=== PATIENT | female | born 1955 | race Caucasian/White ===

== ENCOUNTER → 2019-03-22 | Outpatient (CLI) | payer MEDICARE, MEDICAID, SELFPAY ==
[2016-05-05 03:15] VITALS: BMI 43.8
--- NOTE | 2019-03-22 | FLU_PTH ---
PATIENT: NETTE REYES LOC: [facility] U#:[id number] AGE/SX: 63/F ROOM: RE03/22/[address]: Dr. Lorraine Cooper MD : 1955 BED: DIS: 03/22/2019 SPEC #: [id number] RECD: 03/22/19 15:17 STATUS: [facility] REQ #: [id number] MARLEN: 03/22/19 00:[address]: Lorraine Cooper DEPT: CYTOLOGY RECD BY: Chaz Yancey ENTERED: 03/23/19 08:53 SP TYPE: Fluid OTHR DR: Dr. Blade Apple MD Tissues: A - Thyroid gland, NOS B - Thyroid gland, NOS Procedures: Special Stain Group II Surgery Specimen Level IV Cytospin Fluid HEADER OPERATION: Ultrasound-guided fine needle aspiration left thyroid PRE-OP DIAGNOSIS: Thyroid nodules TISSUE SUBMITTED: A - FNA left thyroid fluid for cytology, B - FNA left thyroid slides x6 DIAGNOSIS CYTOLOGY A. Left thyroid nodule fluid for cytology, ultrasound-guided FNA (cytospin and cell block): Benign follicular cells and numerous macrophages are noted. B. Left thyroid nodule, ultrasound-guided FNA (smears): Consistent with benign colloid nodule with extensive cystic changes. Adequate for evaluation. See comment. BRENDA:kermit 03/24/19 COMMENT Correlation with clinical, radiologic findings and appropriate follow up are necessary. CYTOLOGY STUDY Slides are reviewed. CYTOLOGY GROSS A - Received is 32 ml of cloudy brown fluid labeled with the patient's name and and designated per the requisition as left thyroid. Submitted for cytology preparation including cell block. B - Received are six smears labeled with the patient's name and designated per the requisition as left thyroid. Submitted for staining. / kermit 03/23/19 TC:5 CPT: 62632, 72229, 83266
== END | disposition home or self-care (01) ==
PROVIDERS: PCP Family Medicine; Referring Provider Surgery; Visit Provider Surgery
DX: E04.2 Nontoxic multinodular goiter (principal)
CPT/HCPCS: 88108; 88305; 88313

== ENCOUNTER → 2019-04-05 10:19 | Outpatient (CLI) | payer MEDICARE, MEDICAID, SELFPAY ==
--- NOTE | 2019-03-29 02:26 | HP_ITS ---
Intake Vital Signs 03/29/19 BMI 43.8 03/29/19 Height 5 ft 4 in 03/29/19 Weight: 221 lb 03/29/19 BMI 37.9 03/29/19 BP 161/83 H 03/29/19 Blood Pressure Location Rt brachial 03/29/19 Position Sitting 03/29/19 Respiration 18 03/29/19 Pulse 115 H 03/29/19 Pulse Source Monitor 03/29/19 Temp 98.1 F 03/29/19 Temp Source Oral 03/29/19 Pulse Oximetry (%) 94 03/29/19 Oxygen Delivery Method room air Intake Visit Reasons: Abnormal Mammo Birads 4 waited for DP Chief Complaint: abnormal mammogram left Research Asst Required: No Accompanied by: Is patient in pain?: No Allergies gabapentin Allergy (Verified 03/29/19 14:17) Hives INHALED STEROIDS Adverse Reaction (Uncoded 05/05/16 03:15) Other Medications Albuterol Aerosols [Ventolin Aerosols] 2.5 mg INHALATION Q6H PRN PRN 05/05/16 [History Confirmed 03/29/19] Albuterol IH (ProAir) [Proair Hfa (SP)Vent Pts] 2 puff INHALATION Q4H PRN PRN 05/05/16 [History Confirmed 03/29/19] Aspirin [Aspirin, Baby] 81 mg PO DAILY@0800 05/05/16 [History Confirmed 03/29/19] Calcium Carb/Vitamin D [Caltrate-600 With Vit D Tab] 1 tab PO DAILY@0800 05/05/16 [History Confirmed 03/29/19] Cholecalciferol (Vitamin D3) [Vitamin D3] 5,000 unit PO DAILY 05/05/16 [History Confirmed 03/29/19] Esomeprazole Mag Trihydrate [Nexium] 40 mg PO DAILY 05/05/16 [History Confirmed 03/29/19] Fexofenadine/Pseudoephedrine [Henna-D 12 Hour Tablet] 1 tab PO BID PRN 05/05/16 [History Confirmed 03/29/19] Lisinopril [Zestril] 0.5 tab PO DAILY 05/05/16 [History Confirmed 03/29/19] Magnesium Chloride 64 tab PO BID 05/05/16 [History Confirmed 03/29/19] Metformin HCl [Glucophage] 1,000 mg PO BIDAC 05/05/16 [History Confirmed 03/29/19] Montelukast [Singulair] 10 mg PO QHS 05/05/16 [History Confirmed 03/29/19] Nystatin Powder [Mycostatin Powder] 1 applic TOPICAL TID 05/05/16 [History Confirmed 03/29/19] Rosuvastatin Calcium [Crestor] 5 mg PO QHS 05/05/16 [History Confirmed 03/29/19] cycloBENZAPRine HCl [Flexeril] 10 mg PO TID PRN PRN 05/05/16 [History Confirmed 03/29/19] [facility] Medical History History of hyperlipidemia (Chronic) History of diabetes mellitus (Chronic) History of COPD (Chronic) CKD (chronic kidney disease), stage II (Chronic) History of asthma (Chronic) Abnormal mammogram of left breast (Acute) Arthritis (Acute) GERD (gastroesophageal reflux disease) (Acute) Hemorrhoids (Acute) Surgical History History of bilateral carpal tunnel release (Acute) History of hysterectomy (Acute) History of right nephrectomy (Acute) history bilateral elbow surgery (Acute) history bilaterl cataract surgery (Acute) Family History Sister Asthma Cancer Mother Arthritis Heart disease Hypertension High cholesterol Cancer skin cancer CVA (cerebral vascular accident) Thyroid disorder Brother Arthritis Cancer lung cancer Hypertension Grandfather Diabetes Social History (Updated 03/29/19 @ 14:26 by Edwar Albrecht MD) Smoking Status: Current every day smoker alcohol intake: never substance use type: does not use HPI HPI HPI: NETTE REYES, is a 63 F who presents to the office today for HPI HPI Surgical H&P: Yes HPI: NETTE REYES, is a 63 F who presents to the office today for Evaluation of an abnormal mammogram to her left breast. Patient had a mammogram done At the [facility] on 02/16/2019 that showed a group of pleomorphic calcifications at the 11 o'clock position middle depth and a biopsy was recommended. I have biopsied in the past her right breast which turned out to be benign ROS General General: No weight change, appetite, fatigue, colon cancer, breast cancer or weakness HEENT HEENT: Yes eye surgery; no difficulty swallowing, eye injury, swollen glands or hoarseness Endo Endocrine: Yes diabetes mellitus; no thyroid disease, thyroid cancer, Hair loss, heat intolerance or cold intolerance Skin Skin: No rash or changing moles Breast Breast: Yes abnormal mammogram; no left breast lump, right breast lump, nipple discharge, breast pain, abnormal US or breast enlargement Musc Musculoskeletal: Yes arthritis and rheumatoid arthritis; no back problems, gout or joint pain Cardio Cardiovascular: No murmur, pacemaker, heart disease, atrial fibrillation, high blood pressure, heart attack, heart stent, palpitations, shortness of breat with exertion or chest pain Psych Psychiatric: No depression, anxiety or hearing voices Resp Respiratory: Yes shortness of breath, No sleep apnea, Yes cough, Yes COPD, Yes asthma, No emphysema, No wheezing Gastro Gastrointestinal: No abdominal pain, No nausea or vomiting, No diarrhea, No constipation, No blood in stool, Yes acid reflux, Yes hemorrhoids, No ulcers, Yes gallbladder problem, No black,tarry stools Chandrakant Hematologic: Yes blood thinners, No blood disorders, No bleeding, No anemia, No blood clots Neuro Neurologic: No system reviewed and no additional complaints, except as docu, No as per HPI, No abnormal walking, No abnormal hearing, No abnormal movements, No abnormal speech, No behavioral changes, No burning sensations, No confusion, No seizure-like activity, No unsteadiness, No dizziness, No localized weakness, No frequent falls, No headache(s), No lack of coordination, No loss of vision, No memory loss, No numbness, No other visual disturbances, No radiating pain, No restless legs, No sensory deficit, No fainting, No tingling, No tremor(s), No weakness, No other Exam HENNH Head: normal to inspection, normocephalic, atraumatic Mouth: oropharynx normal, moist mucous membranes Eyes General: appearance normal, both eyes and all related structures Sclera: sclerae normal Neck Neck: trachea midline, no lymphadenopathy noted Neck mass: No Thyroid: thyroid normal Lymphatic: no lymphadenopathy noted Chest Breast inspection: normal inspection of the breasts Breast Palpation: No nipple discharge Resp Other: Respiratory Exam: Deferred Cardio Heart Sounds: no murmurs Other: Cardiac Exam: Deferred GI Other: GI Exam: Deferred Other: Rectal Exam: Deferred Extrem Other: Extremity Exam: Deferred Assessment & Plan Problems 1. Microcalcification of left breast on mammogram R92.0 Plan I have discussed above with the patient. I have recommended Stereo tactic guided needle core breast biopsy with vacuum assistance. I have described the procedure to the patient. I have discussed with the patient that sometimes the Stereotactic lesion may be artifact and is user dependent and therefore prior to undergoing the procedure, the patient will have a definitive US to ensure that the lesion is truly present and is not artifact. A marker clip will be placed to identify the location. Patient has been counseled to the risks/benefits of the procedure. I have explained the risks of the surgery, including but not limited to: infection, bleeding, injury to any blood vessels/nerves, scar tissue, missing the lesion, further surgery, etc. - the patient understands and agrees to proceed. I have answered all of the patient's questions to her satisfaction and she has no further questions. Coding Level of Care Code Off vis,new,level 3 Diagnoses Microcalcification of left breast on mammogram R92.0 03/29/19 1426 <Electronically signed by Edwar mcdonald MD> Date _ Edwar Albrecht MD
[2019-03-29 14:18] VITALS: BMI 43.8
--- NOTE | 2019-04-05 11:20 | BRBX_PTH ---
PATIENT: NETTE REYES LOC: [facility] U#:[id number] AGE/SX: 69/F ROOM: RE04/05/[address]: Dr. Edwar Albrecht MD : 1955 BED: DIS: SPEC #: [id number] RECD: 04/05/19 11:50 STATUS: CAMERON REJoel #: [id number] MARLEN: 04/05/19 11:[address]: Edwar Albrecht DEPT: SURGICAL PATHOLOGY RECD BY: Jorge Castillo ENTERED: 04/05/19 12:58 SP TYPE: BREAST BX OTHR DR: Dr. Blade Apple MD Tissues: Left breast, NOS Procedures: Surgery Specimen Level IV HEADER OPERATION: Left breast stereotactic biopsy PRE-OP DIAGNOSIS: Left breast middle depth calcifications 11 o'clock area TISSUE SUBMITTED: Left breast ISCHEMIC TIME: 2 minutes FIXATION TIME: 8 hours MICROSCOPIC DIAGNOSIS Left breast, stereotactic needle core biopsy: Fibroadenoma with clustered microcalcifications. AM:kermit 04/06/19 MICROSCOPIC DESCRIPTION Slides are reviewed. GROSS DESCRIPTION Received is one container labeled with the patient's name and not further designated. The specimen consists of multiple elongated fragments of marroquin-yellow fibroadipose tissue that in aggregate measure 7.5 x 3 x 0.3 cm. The entire specimen is submitted in three cassettes. / SJ:kermit 04/05/19 TC:5 CPT: 44148
--- NOTE | 2019-10-19 14:22 | OP.PCM_ITS ---
Problem List (1) Microcalcification of left breast on mammogram Status: Acute Report of Operation Date of Procedure: 04/05/19 Pre-Operative Diagnosis: Microcalcifications left breast Post-Operative Diagnosis: Same Surgery/Procedure Performed:: Left stereotactic breast biopsy Description of Procedure: Patient was brought into the mammography unit. Placed in the supine position on the fissure table. The left breast came down through the opening. Cc view was obtained of the lesion. ?15 degrees views were obtained. I targeted on the microcalcifications. I prepped the breast with Betadine. I injected 1% lidocaine plain. A skin marcos was made. Needle was placed in the prefire position a 2 more stereotactic views were obtained showing the area to be adequately targeted. I fired the needle took 360 degree circumferential biopsies. X-rayed my specimen. Microcalcifications were present. Back the needle off 7 mm. A small titanium clip was placed. Needle was removed. X-ray images showed the clip to be in good placement. Steri-Strips were applied sterile dressings were applied standard mammograms were obtained the patient tolerated the procedure well. - Admit VTE Documentation VTE Present on Admission: No VTE Mechan Device Prophylaxis: None VTE Pharm Prophylaxis ordered?: No Reason prophylaxis not ordered:: Treatment Not Indicated [id number]: [id number] Bx breast 1st lesion [facility]
== END ==
PROVIDERS: PCP Family Medicine; Referring Provider Surgery; Visit Provider Surgery
DX: D24.2 Benign neoplasm of left breast (principal); E78.5 Hyperlipidemia, unspecified; E11.9 Type 2 diabetes mellitus without complications; J44.9 Chronic obstructive pulmonary disease, unspecified; M19.90 Unspecified osteoarthritis, unspecified site; K21.9 Gastro-esophageal reflux disease without esophagitis; F17.200 Nicotine dependence, unspecified, uncomplicated; Z79.82 Long term (current) use of aspirin; Z79.51 Long term (current) use of inhaled steroids; Z79.84 Long term (current) use of oral hypoglycemic drugs; Z79.899 Other long term (current) drug therapy
CPT/HCPCS: 19081; 88305; J7050; A4648

== ENCOUNTER 2019-06-14 03:30 | Emergency (ER) | payer MEDICARE, MEDICAID, SELFPAY ==
[2019-03-29 14:18] VITALS: BMI 43.8
[2019-06-14 03:32] VITALS: BP 172/72; PULSE 107; RESP 19; TEMP 36.4; O2SAT 97; BMI 42.6
--- NOTE | 2019-06-14 03:50 | ED.VIS.GEN ---
History of Present Illness Chief Complaint: Vag Bleeding Informant: Patient Onset: Today Narrative: Patient presents the emergency department with vaginal bleeding. Patient called the ambulance after she noticed an increased amount of bleeding she was having. Patient has had a hysterectomy. She states she is supposed to have a Pap smear but due to the SARS COVID-19 pandemic it was put on hold. Patient states for years she is intermittently had bleeding. She describes blood blisters that come up and rupture. She thought that was what was happening this afternoon when she had some bleeding. However tonight she went to the bathroom and had a large clot. She states that the amount of bleeding concerned her so she called the ambulance. She sees Dr. Esquivel for gynecology. Past Medical History - Allergies and Home Meds Allergies/Adverse Reactions: Allergies gabapentin Allergy (Verified 06/14/19 03:32) Hives INHALED STEROIDS Adverse Reaction (Uncoded 06/14/19 03:32) Other Primary Care Physician: Blade Apple MD [Primary Care Provider] - Surgical History: hysterectomy, R. KIDNEY REMOVAL Smoking Status: Current every day smoker Review of Systems General: Denies: Chills, Fever, Sweats Eyes: Denies: Visual changes - bilaterally, Diplopia ENT: Denies: Rhinorrhea, Sore throat Cardiovascular: Denies: Chest pain, Palpitations Respiratory: Denies: Dyspnea, Cough, Dyspnea on exertion Gastrointestinal: Denies: Abdominal pain, Nausea, Vomiting, Diarrhea, Melena, Hematochezia Genitourinary: Reports: - - vaginal bleeding. Denies: Dysuria, Hematuria, Frequency Musculoskeletal: Denies: Back pain, Extremity Pain Skin: Denies: Rash, Wounds Neurological: Denies: Headache, Weakness, Numbness Physical Exam Vital Signs/Narrative: Vital Signs Temp Pulse Resp BP Pulse Ox 06/14/19 03:32 87.5 F L 107 H 19 H 172/72 H 97 Inital Vital Signs reviewed: Yes General: Obese : - - On speculum examination I see what appears to be several small tears in the vaginal mucosa. However there is no bleeding from them. There is some dark red blood that seems to come from the posterior aspect. I do not see really any blood on the anterior or lateral kidd of the vagina. I do not see any blood blisters or lesions. Diagnostic/Tx/Re-eval - Medical Decision Making Hemoglobin and hematocrit were checked and stable. While I do not see an obvious source of bleeding there is obvious venous blood in the vagina of a mild amount. I did speak with Dr. Esquivel to help facilitate follow-up and she is more than willing to see the patient in follow-up. ED Disposition - Plan for ED Patient: Disposition: Home or Assisted Living Diagnosis: Vaginal bleeding, Post-menopausal Referrals: Jessica Esquivel MD [STAFF PHYSICIAN] - As soon as possible Additional Instructions: While the source of bleeding was not identified today you need a appropriate gynecologic examination by a electrophysiology technologist. Should your bleeding worsen or you start to feel lightheaded/passing out/pale you should have your hemoglobin rechecked.
[2019-06-14 04:13] VITALS: BP 143/67; PULSE 111; RESP 22; O2SAT 97
[2019-06-14 04:13] LABS: Hematocrit 43.1 % (37-47); Hemoglobin 13.6 g/dL (12.0-15.0)
[2019-06-14 04:25] VITALS: PULSE 105
[2019-06-14 05:05] VITALS: BP 138/78; PULSE 104; RESP 21; O2SAT 98
== END 2019-06-14 05:06 | disposition home or self-care (01) ==
PROVIDERS: Emergency Provider Emergency Medicine; PCP Family Medicine
DX: N95.0 Postmenopausal bleeding (principal); F17.200 Nicotine dependence, unspecified, uncomplicated; E66.9 Obesity, unspecified
CPT/HCPCS: 36415; 85014; 85018; 99284

== ENCOUNTER 2024-05-27 14:40 | Inpatient (IN) | payer MEDICARE, MEDICAID, SELFPAY ==
[2024-05-27] VITALS (13 sets, daily range): BP systolic 97–137; BP diastolic 55–97; PULSE 112–140; RESP 15–32; TEMP 36.5–36.6; O2SAT 92–97; BMI 44.1; BMI 36.8
--- NOTE | 2024-05-27 15:04 | EKG12_ITS ---
Test Reason : DIZZY Blood Pressure : */* mmHG Vent. Rate : 130 BPM Atrial Rate : 130 BPM P-R Int : 148 ms QRS Dur : 82 ms QT Int : 288 ms P-R-T Axes : 40 -1 32 degrees QTcB Int : 423 ms Sinus tachycardia with PAC's Otherwise normal ECG Confirmed by Dustin Knight ([id number]), map editor JO LAWSON ([id number]) on 05/31/2024 6:47:40 AM Referred By: Raciel Ashby Confirmed By: Dustin Knight
[2024-05-27] MEDS: 0.9% Normal Saline (1000mL) 1,000 ML 1000 ML IV (15:11)
--- NOTE | 2024-05-27 15:15 | RAD_ITS ---
EXAM: XR Chest, 2 Views CLINICAL INDICATION: COUGH TECHNIQUE: Frontal and lateral views of the chest. COMPARISON: No relevant prior studies available. FINDINGS: LUNGS AND PLEURAL SPACES: Right middle lobe pneumonia. No pneumothorax. HEART: Unremarkable. No cardiomegaly. MEDIASTINUM: Unremarkable. Normal mediastinal contour. BONES/JOINTS: Unremarkable. No acute fracture. RAD/Chest PA and Lateral IMPRESSION: Right middle lobe pneumonia. Reading Location: [facility]
[2024-05-27 15:19] LABS: Absolute Lymphocyte Count 0.78 X10^3/uL (0.83-4.51); Absolute Neutrophil Count 16.2 X10^3/uL (2.0-7.7); Basophil# 0.06 X10^3/uL; Basophil% 0.3 % (0-1); Eosinophil# 0.09 X10^3/uL; Eosinophils% 0.5 % (0-5); Hemoglobin 10.2 g/dL (12.0-15.0); Lymphocyte # 0.78 X10^3/ul (0.83-4.51); Lymphocyte % 4.3 % (19-41); Mean Corp Hgb Conc 31.9 g/dL (32-36); Mean Corpuscular Hgb 24.6 pg (27.0-32.0); Mean Corpuscular Volume 77.3 fL (81-99); Monocyte# 0.71 X10^3/uL; Monocyte% 3.9 % (0-10); NRBC Flagged by Analyzer 0 % (0-5); Neutrophil # 16.19 X10^3/uL (2.7-7.7); Neutrophil % 89.7 % (47-70); Platelet Count 566 K/mm3 (150-450); RBC Distribution Width CV 15.6 % (11.6-14.6); RBC Distribution Width SD 43.8 fl (35.1-43.9); Red Blood Count 4.14 M/mm3 (4.2-5.4); White Blood Count 18.1 K/mm3 (4.4-11.0)
[2024-05-27] MEDS: Ipratropium/Albuterol Sulfate 3 ML AMPUL.NEB INHALATION (15:25)
--- NOTE | 2024-05-27 15:25 | EX.ED.DYSGE1 ---
HPI History of Present Illness Chief Complaint: Syncope Informant: patient and family Narrative Narrative: Patient is a 68-year-old female with history of COPD, CKD, asthma, diabetes, hyperlipidemia, vulvar cancer status post radiation and recent diagnosis of lung cancer (has not started treatment yet but follows with [facility]?Dr. Obando and Dr. Sánchez) presenting for near syncopal episode at her oncology office today. He states for the past week she has had what feels like a cold. States has been feeling tired and feeling bad for 5 to 6 days. She said decreased oral intake and decreased fluids. She has had a cough is been nonproductive. She did throw up the first day this started and is also had intermittent diarrhea (took Imodium this morning). States that her chest feels sore from vomiting. She does have some intermittent palpitations. She denies confusion but her daughter states she seems foggy. She denies fever but has been having cold chills. Does have a history of UTIs but denies any urine symptoms. Does note her urine seemed orange this morning however. When she was at her oncology office today she felt lightheaded and fell like she was going to pass out. She did get weak but did not fall or injure herself. She denies any swelling of her legs. Denies any sick contacts. Is not on any blood thinners. Notes that she did not take her morning medications. Is normally on metoprolol for fast heart rates. Did not take her meds today because she is not feeling good. Oncology note from earlier today reviewed on [facility]. Recently diagnosed with stage Ia non-small cell lung cancer. I did thank you had near syncope in the office was sent to the ER for further evaluation. Currently on Lopressor 25 mg twice daily however her medical history does not show an indication for this. Patient states it is for her fast heart rate. [facility] Medical History Hemorrhoids GERD (gastroesophageal reflux disease) Arthritis Abnormal mammogram of left breast History of hyperlipidemia History of diabetes mellitus History of COPD CKD (chronic kidney disease), stage II History of asthma Home Medications ?Medication ?Instructions ?Recorded ?Last Taken ?Type albuterol sulfate 2.5 mg/3 mL 2.5 mg inhalation Q6H PRN PRN Sob 05/05/16 Unknown History (0.083 %) solution for nebulization &/Or Wheezing albuterol sulfate 90 mcg/actuation 2 puff inhalation Q4H PRN PRN Sob 05/05/16 Unknown History aerosol inhaler &/Or Wheezing aspirin 81 mg chewable tablet 81 mg PO DAILY@0800 05/05/16 Unknown History cholecalciferol (vitamin D3) 125 5,000 unit PO DAILY 05/05/16 Unknown History mcg (5,000 unit) capsule esomeprazole magnesium 40 mg 40 mg PO DAILY 05/05/16 Unknown History capsule,delayed release fexofenadine 60 mg-pseudoephedrine 1 tab PO BID PRN ALLERGY SYMPTOMS 05/05/16 Unknown History ER 120 mg tablet,ext.release,12 hr lisinopril 5 mg tablet 0.5 tab PO DAILY 05/05/16 Unknown History metformin 500 mg tablet 1,000 mg PO BIDAC 05/05/16 Unknown History nystatin 100,000 unit/gram topical 1 applic topical TID 05/05/16 Unknown History powder baclofen 10 mg tablet 10 mg PO TID PRN PRN muscle spasm 05/27/24 Unknown History dulaglutide 3 mg/0.5 mL 3 mg subcut QWEEK 05/27/24 Unknown History subcutaneous pen injector (Trulicity) evolocumab 140 mg/mL subcutaneous 140 mg subcut QMONTH 05/27/24 Unknown History pen injector (Elyse Mai) fenofibrate nanocrystallized 145 145 mg PO DAILY 05/27/24 Unknown History mg tablet glimepiride 1 mg tablet 1 mg PO DAILY 05/27/24 Unknown History levothyroxine 125 mcg tablet 125 mcg PO DAILY 05/27/24 Unknown History magnesium oxide 400 mg PO DAILY 05/27/24 Unknown History metoprolol tartrate 25 mg tablet 25 mg PO BID 05/27/24 Unknown History Allergy/AdvReac Type Severity Reaction Status Date / Time gabapentin Allergy Hives Verified 05/27/24 14:42 Corticosteroids AdvReac NEEDS Verified 05/27/24 14:42 (Glucocorticoids) FOLLOW-UP Family History Sister Asthma Cancer Mother Arthritis Heart disease Hypertension High cholesterol Cancer skin cancer CVA (cerebral vascular accident) Thyroid disorder Brother Arthritis Cancer lung cancer Hypertension Grandfather Diabetes Surgical History History of breast biopsy (~03/2019) history bilaterl cataract surgery History of bilateral carpal tunnel release history bilateral elbow surgery History of right nephrectomy History of hysterectomy Social History Smoking Status: Current every day smoker tobacco type: cigarettes alcohol intake: never substance use type: does not use ROS ROS ED Constitutional Constitutional ED: Reports chills and sweats; Denies fever(s) Eyes Eyes: Denies change in vision ENT ENT ED: Denies sore throat Cardiovascular Cardiovascular: Reports palpitations; Denies chest pain Respiratory/Chest Respiratory/Chest: Reports cough and dyspnea on exertion Gastrointestinal Gastrointestinal: Reports diarrhea and vomiting; Denies abdominal pain, constipation or melena Genitourinary Genitourinary ED: Reports other Details: decreased urination ; Denies dysuria Musculoskeletal Musculoskeletal: Reports myalgias Integumentary Denies rash Neurologic Neurologic: Reports weakness Hematologic/Lymphatic Hematologic/Lymphatic: Denies easy bleeding or easy bruising EXAM Physical Exam Const Vital Signs: 05/27/24 14:42 05/27/24 14:45 05/27/24 14:54 Temperature 97.8 F 97.8 F Temperature Source Oral Oral Pulse Rate 140 H 131 H Respiratory Rate 32 H 19 H Respiratory Effort Normal Respiratory Pattern Blood Pressure 137/97 H 137/97 H Blood Pressure Mean 110 110 Pulse Ox 97 96 Oxygen Delivery Method Room Air Room Air 05/27/24 15:00 05/27/24 15:21 05/27/24 15:25 Temperature Temperature Source Pulse Rate 130 H 131 H 124 H Respiratory Rate 17 29 H 18 Respiratory Effort Respiratory Pattern Normal Blood Pressure 116/76 Blood Pressure Mean 88 Pulse Ox 97 97 Oxygen Delivery Method 05/27/24 15:45 05/27/24 16:00 05/27/24 16:00 Temperature 97.7 F L 97.7 F L Temperature Source Oral Oral Pulse Rate 123 H 122 H 122 H Respiratory Rate 20 H 27 H 27 H Respiratory Effort Respiratory Pattern Blood Pressure 117/77 113/58 L 113/58 L Blood Pressure Mean 90 76 76 Pulse Ox 96 92 92 Oxygen Delivery Method Room Air Room Air Nasal Cannula 05/27/24 16:00 05/27/24 17:00 05/27/24 17:30 Temperature 98 F Temperature Source Oral Pulse Rate 123 H 122 H 118 H Respiratory Rate 18 15 18 Respiratory Effort Respiratory Pattern Blood Pressure 113/58 L 126/55 H 97/56 L Blood Pressure Mean 75 78 69 Pulse Ox 95 94 96 Oxygen Delivery Method Room Air 05/27/24 18:00 Temperature Temperature Source Pulse Rate 120 H Respiratory Rate 19 H Respiratory Effort Respiratory Pattern Blood Pressure 117/63 Blood Pressure Mean 81 Pulse Ox 95 Oxygen Delivery Method Positive well nourished and well developed General Appearance ED: well developed and NAD HEENT Reports moist mucous membranes Eyes EOMs intact bilaterally Neck supple and no JVD Chest Wall inspection of chest normal and palpation of chest normal Resp normal respiratory effort Auscultation: diminished lung sounds Cardio regular rhythm and no murmurs Rate: tachycardic GI normal to inspection, nondistended, normoactive bowel sounds and non-tender Auscultation: hyperactive bowel sounds Extremity normal to inspection General Extremety ED: Negative for edema General Extremity: Negative for edema Neuro oriented x3 Sensorium / Orientation: alert Motor Exam: general weakness Psych mental status grossly normal Skin no rashes or lesions noted and no wounds MDM MDM MDM Narrative Medical decision making narrative: Patient evaluated for near syncopal episode. She has been ill for the past few days with poor p.o. intake, generalized malaise and some nausea and vomiting. Patient not take her morning medications. Upon arrival patient is tachycardic and tachypneic. She is not hypoxic. Suspect she is volume depleted given her HPI. Patient is given IV fluids with improvement of her heart rate (instead of jumping around it is now in the 120s more consistently). Is then given IV metoprolol with further heart rate improvement as she did not take it today. She is not hypotensive in the emergency room. She does have a leukocytosis white count of 18.1. She is anemic with a hemoglobin of 10.2 that appears to be microcytic. Hemoglobin on 05/11 was 11.8 and white blood cell count that time was 13.9. Prior records reviewed through [facility]. Patient does appear to have an PETRA with creatinine of 2.25 (baseline 1.37) and is acutely hyponatremic with sodium of 123. This is consistent with her report of weakness and decreased oral intake. Her bicarb is also low at 17.6 consistent with dehydration. Her lactate is normal which was added on because she has a leukocytosis and urinalysis concerning with infection with a white blood cell count of 25-50 and 1+ bacteria. Her chest x-ray is concerning for a right middle lobe pneumonia. This is reviewed by myself as well as radiology. I do question if this could be related to her recent bronchoscopy or mass that was seen in the right lower lobe. Out of abundance of caution will add on azithromycin in addition to the Rocephin for coverage of community-acquired pneumonia however. Given patient's multiple electrolyte abnormalities and she needs right ear for sepsis with leukocytosis, tachycardia and source of infection as well as PETRA will be admitted to hospitalist service. Is given additional IV fluids. Patient is agreeable with this plan of care. Lab Data Attestation: I reviewed the patient's lab results. Labs: Laboratory Results - last 24 hr 05/27/24 05/27/24 05/27/24 14:50 16:05 16:20 WBC 18.1 H RBC 4.14 L Hgb 10.2 L Hct 32.0 L MCV 77.3 L MCH 24.6 L MCHC 31.9 L RDW Std Deviation 43.8 RDW Coeff of Yoli 15.6 H Plt Count 566 H MPV 10.0 Immature Gran % (Auto) 1.300 H Neut % (Auto) 89.7 H Lymph % (Auto) 4.3 L [place] % (Auto) 3.9 Eos % (Auto) 0.5 Baso % (Auto) 0.3 Absolute Neuts (auto) 16.2 H Absolute Lymphs (auto) 0.78 L Nucleated RBC % 0 Sodium 123 L Potassium 4.7 Chloride 88 L Carbon Dioxide 17.6 L Anion Gap 17 H BUN 29 H Creatinine 2.25 H Estim Creat Clear Calc 26.50 L Est GFR (MDRD) Non-Af 23 L BUN/Creatinine Ratio 12.8 Glucose 236 H Lactic Acid 1.2 Calcium 9.8 Ferritin 313 Total Bilirubin 0.93 AST 14 ALT 6 Alkaline Phosphatase 69 Troponin T High Sens 32 H Troponin T Hi Sens 2 Hr NT pro BNP II 1080 H Total Protein 8.1 Albumin 3.4 Globulin 4.7 H Albumin/Globulin Ratio 0.7 L Lipase 15 Urine Color Melissa Urine Clarity Cloudy Urine pH 5.0 Ur Specific [place] 1.030 Urine Protein 100 H Urine Glucose (UA) Normal Urine Ketones 5 H Urine Occult Blood 10 H Urine Nitrite Negative Urine Bilirubin 3 H Urine Urobilinogen 8 H Ur Leukocyte Esterase 500 H Urine RBC 0-5 SEEN Urine WBC 25-50 SEEN Ur Squamous Epith Cells 0-5 SEEN Amorphous Sediment 1+ PHOS Urine Bacteria 1+ Hyaline Casts 0-5 SEEN Fine Granular Casts 0-5 SEEN Coarse Granular Casts 0-5 SEEN Urine Mucus 0 SEEN 05/27/24 17:20 WBC RBC Hgb Hct MCV MCH MCHC RDW Std Deviation RDW Coeff of Yoli Plt Count MPV Immature Gran % (Auto) Neut % (Auto) Lymph % (Auto) [place] % (Auto) Eos % (Auto) Baso % (Auto) Absolute Neuts (auto) Absolute Lymphs (auto) Nucleated RBC % Sodium Potassium Chloride Carbon Dioxide Anion Gap BUN Creatinine Estim Creat Clear Calc Est GFR (MDRD) Non-Af BUN/Creatinine Ratio Glucose Lactic Acid Calcium Ferritin Total Bilirubin AST ALT Alkaline Phosphatase Troponin T High Sens Troponin T Hi Sens 2 Hr 32 H NT pro BNP II Total Protein Albumin Globulin Albumin/Globulin Ratio Lipase Urine Color Urine Clarity Urine pH Ur Specific [place] Urine Protein Urine Glucose (UA) Urine Ketones Urine Occult Blood Urine Nitrite Urine Bilirubin Urine Urobilinogen Ur Leukocyte Esterase Urine RBC Urine WBC Ur Squamous Epith Cells Amorphous Sediment Urine Bacteria Hyaline Casts Fine Granular Casts Coarse Granular Casts Urine Mucus Radiography Diagnostic Testing: Clinical Impression(s) from Imaging Studies Chest X-Ray 05/27/24 15:15 IMPRESSION: Right middle lobe pneumonia. Reading Location: [facility] Rhythm Strip Rhythm Strip: Sinus Tach Rate: 130 Ectopy: None EKG Initial EKG: Attestation: I personally reviewed and interpreted this EKG as follows: Interpretation: Sinus Tachycardia Comments: Sinus tachycardia rate 130 bpm Normal axis Normal intervals Normal ST segments Management Discussion w/another healthcare provider: Hospitalist Discharge Plan Dx/Rx/DC Orders Clinical Impression: UTI (urinary tract infection), PETRA (acute kidney injury), Acute hyponatremia, Near syncope, Sepsis Disposition Disposition: [facility] Discharge Date/Time: 05/27/24 19:57
[2024-05-27 15:52] LABS: ALB/GLOB Ratio 0.7 RATIO (0.9-2.4); AST(SGOT) 14 U/L (<=31); Alanine Aminotransfer ALT/SGPT 6 U/L (<=34); Albumin, Serum 3.4 g/dL (3.4-4.8); Alkaline Phosphatase 69 U/L (35-104); Anion Gap 17 (5-15); BUN 29 mg/dL (4-19); BUN/Creat Ratio 12.8 RATIO (10-20); Calcium,Total 9.8 mg/dL (7.6-11.0); Carbon Dioxide 17.6 mmol/L (21.0-32.0); Chloride 88 mmol/L (98-108); Creatinine, Serum 2.25 mg/dL (0.70-1.20); EST Glomerular Filtration Rate 23 (>60); Globulin 4.7 g/dL (2.2-4.2); Glucose 236 mg/dL (70-99); Lipase 15 U/L (13-75); Potassium 4.7 mmol/L (3.3-5.1); Pro- Brain NATRIURETIC PEPTIDE 1080 pg/mL (<=900); Protein, Total 8.1 g/dL (5.9-8.4); Sodium Level 123 mmol/L (133-145); Total Bilirubin 0.93 mg/dL (0.00-1.30)
[2024-05-27 16:17] LABS: Troponin T High Sensitivity 32 ng/L (<=14)
[2024-05-27 16:35] LABS: Mucous, Urine 0 SEEN /hpf (<or=2+)
[2024-05-27 16:51] LABS: Color, Urine Amber (Yellow); Glucose, Dipstick Normal (Normal); Ketone-Dipstick 5 mg/dl (Negative); Leukocyte Esterase-Dipstick 500 /ul (Negative); Nitrite-Dipstick Negative (Negative); Occult Blood-Urine 10 /ul (Negative); Protein-Dipstick 100 mg/dl (Negative); Urine Clarity Cloudy (Clear); Urine Urobilinogen 8 mg/dl (Normal)
[2024-05-27 16:58] LABS: Urine Bilirubin Dipstick 3 mg/dL (Negative)
[2024-05-27 17:34] LABS: Red Blood Cells-Urine 0-5 SEEN /hpf (0-5); White Blood Cells 25-50 SEEN /hpf (0-5)
[2024-05-27 17:35] LABS: Bacteria 1+ /hpf (None Seen); Hyaline Cast 0-5 SEEN /lpf (0-5); Squamous Epithelial Cells - UA 0-5 SEEN /hpf (5-10)
[2024-05-27 17:36] LABS: Lactic Acid 1.2 mmol/L (0.0-2.0)
[2024-05-27 17:36] LABS: Coarse Granular Cast 0-5 SEEN /lpf (0-5 /lpf); Fine Granular Cast- Urine 0-5 SEEN /lpf (0-5)
[2024-05-27 17:37] LABS: Amorphous Sediment 1+ PHOS
[2024-05-27 17:57] LABS: Troponin T High Sens 2 HR 32 ng/L (<=14)
[2024-05-27] MEDS: Metoprolol Tartrate 5 MG/5 ML Vial IV (18:31)
[2024-05-27] MEDS: 0.9% Normal Saline (1000mL) 1,000 ML 150 ML IV (18:38)
[2024-05-27] MEDS: Ceftriaxone 1 GM/50 ML BAG IV (18:38)
--- NOTE | 2024-05-27 19:02 | PCM.HP.STD ---
HPI - General General Date of Admission: 05/27/24 HPI Narrative NETTE REYES, is a 68 F who presents to the hospital feeling unwell since Friday. She initially started feeling chills, no fevers and had an episode of nausea and vomiting on Friday and then again on Friday. She has had a decrease in appetite and p.o. intake and presented to her oncologist office today to discuss treatment for her non-small cell lung cancer on the right. Unfortunately while in the office she had a near syncopal episode and they referred her to the emergency room where she was found to have a leukocytosis to 18 as well as an PETRA and hyponatremia. She does have a history of multiple cancers including a vulvar cancer, a right renal cancer status post resection and this is her second lung cancer, it is unclear whether or not this is a recurrence of her previous or a new cancer. She was given Rocephin and azithromycin in the ER and urine cultures and blood cultures are pending, also obtain a sputum culture. Baseline renal function does appear to be around 1.3 and her creatinine today is 2.25, she does have an elevated BNP but this is likely in response to her PETRA. [facility] Medical History (Updated 05/27/24 @ 19:[address] Raciel Ashby MD) Hemorrhoids GERD (gastroesophageal reflux disease) Arthritis Abnormal mammogram of left breast History of hyperlipidemia History of diabetes mellitus History of COPD CKD (chronic kidney disease), stage II History of asthma Home Medications ?Medication ?Instructions ?Recorded ?Last Taken ?Type albuterol sulfate 2.5 mg/3 mL 2.5 mg inhalation Q6H PRN PRN Sob 05/05/16 Unknown History (0.083 %) solution for nebulization &/Or Wheezing albuterol sulfate 90 mcg/actuation 2 puff inhalation Q4H PRN PRN Sob 05/05/16 Unknown History aerosol inhaler &/Or Wheezing aspirin 81 mg chewable tablet 81 mg PO DAILY@0800 05/05/16 Unknown History cholecalciferol (vitamin D3) 125 5,000 unit PO DAILY 05/05/16 Unknown History mcg (5,000 unit) capsule esomeprazole magnesium 40 mg 40 mg PO DAILY 05/05/16 Unknown History capsule,delayed release fexofenadine 60 mg-pseudoephedrine 1 tab PO BID PRN ALLERGY SYMPTOMS 05/05/16 Unknown History ER 120 mg tablet,ext.release,12 hr lisinopril 5 mg tablet 0.5 tab PO DAILY 05/05/16 Unknown History metformin 500 mg tablet 1,000 mg PO BIDAC 05/05/16 Unknown History nystatin 100,000 unit/gram topical 1 applic topical TID 05/05/16 Unknown History powder baclofen 10 mg tablet 10 mg PO TID PRN PRN muscle spasm 05/27/24 Unknown History dulaglutide 3 mg/0.5 mL 3 mg subcut QWEEK 05/27/24 Unknown History subcutaneous pen injector (Trulicity) evolocumab 140 mg/mL subcutaneous 140 mg subcut QMONTH 05/27/24 Unknown History pen injector (Repatha Intent HQGregoryick) fenofibrate nanocrystallized 145 145 mg PO DAILY 05/27/24 Unknown History mg tablet glimepiride 1 mg tablet 1 mg PO DAILY 05/27/24 Unknown History levothyroxine 125 mcg tablet 125 mcg PO DAILY 05/27/24 Unknown History magnesium oxide 400 mg PO DAILY 05/27/24 Unknown History metoprolol tartrate 25 mg tablet 25 mg PO BID 05/27/24 Unknown History Allergy/AdvReac Type Severity Reaction Status Date / Time gabapentin Allergy Hives Verified 05/27/24 14:42 Corticosteroids AdvReac NEEDS Verified 05/27/24 14:42 (Glucocorticoids) FOLLOW-UP Family History Sister Asthma Cancer Mother Arthritis Heart disease Hypertension High cholesterol Cancer skin cancer CVA (cerebral vascular accident) Thyroid disorder Brother Arthritis Cancer lung cancer Hypertension Grandfather Diabetes Surgical History (Updated 09/06/21 @ 11:29 by Lisa Hernandez) History of breast biopsy (~03/2019) history bilaterl cataract surgery History of bilateral carpal tunnel release history bilateral elbow surgery History of right nephrectomy History of hysterectomy Social History (Updated 04/19/19 @ 10:[address] Edwar Albrecht MD) Smoking Status: Current every day smoker tobacco type: cigarettes alcohol intake: never substance use type: does not use ROS Constitutional Constitutional: Reports chills, fatigue and weakness; Denies fever(s) or malaise Eyes Eyes: Denies blurry vision ENT HEENT: Denies headache(s) or nasal discharge Cardiovascular Cardiovascular: Denies chest pain, dyspnea on exertion or syncope Respiratory/Chest Respiratory/Chest: Denies cough, shortness of breath at rest or shortness of breath with exertion Gastrointestinal Gastrointestinal: Reports nausea and vomiting; Denies constipation or diarrhea Genitourinary Genitourinary: Denies dysuria Neurologic Neurologic: Denies focal weakness, numbness or tremor(s) Psychiatric Psychiatric: Denies anxiety or depression Vital Signs Vital Signs Vital Signs: 05/27/24 14:42 05/27/24 14:45 05/27/24 14:54 Temperature 97.8 F 97.8 F Temperature Source Oral Oral Pulse Rate 140 H 131 H Respiratory Rate 32 H 19 H Respiratory Effort Normal Respiratory Pattern Blood Pressure 137/97 H 137/97 H Blood Pressure Mean 110 110 Pulse Ox 97 96 Oxygen Delivery Method Room Air Room Air 05/27/24 15:00 05/27/24 15:21 05/27/24 15:25 Temperature Temperature Source Pulse Rate 130 H 131 H 124 H Respiratory Rate 17 29 H 18 Respiratory Effort Respiratory Pattern Normal Blood Pressure 116/76 Blood Pressure Mean 88 Pulse Ox 97 97 Oxygen Delivery Method 05/27/24 15:45 05/27/24 16:00 05/27/24 16:00 Temperature 97.7 F L 97.7 F L Temperature Source Oral Oral Pulse Rate 123 H 122 H 122 H Respiratory Rate 20 H 27 H 27 H Respiratory Effort Respiratory Pattern Blood Pressure 117/77 113/58 L 113/58 L Blood Pressure Mean 90 76 76 Pulse Ox 96 92 92 Oxygen Delivery Method Room Air Room Air Nasal Cannula 05/27/24 16:00 05/27/24 17:00 05/27/24 17:30 Temperature 98 F Temperature Source Oral Pulse Rate 123 H 122 H 118 H Respiratory Rate 18 15 18 Respiratory Effort Respiratory Pattern Blood Pressure 113/58 L 126/55 H 97/56 L Blood Pressure Mean 75 78 69 Pulse Ox 95 94 96 Oxygen Delivery Method Room Air 05/27/24 18:00 Temperature Temperature Source Pulse Rate 120 H Respiratory Rate 19 H Respiratory Effort Respiratory Pattern Blood Pressure 117/63 Blood Pressure Mean 81 Pulse Ox 95 Oxygen Delivery Method Weight Weight: 225 lb 12.054 oz Body Mass Index (BMI) 44.1 Physical Exam Narrative General: Alert, Oriented x3, Cooperative, No apparent distress HEENT: Atraumatic, PERRLA, EOMI, Normocephalic Oral: Dry mucosa Neck: Supple, No JVD Lungs: Diminished, Normal air movement, No rhonchi, No wheeze, No rales Cardiovascular: Tachycardic, Regular Rhythm, Normal S1, Normal S2, No murmurs Abdomen: Soft, Non Tender, Non-Distended, No Hepato-splenomegaly Extremities: No edema, Capillary Refill Less than 3 Seconds Skin: No rashes, No breakdown Musculoskeletal: No Tenderness to Palpation of Joints or Extremities Neurological: No focal neurological deficits, Motor Exam 5/5 strength throughout, Sensory exam intact to light touch and pain Psych/Mental Status: Normal Affect, Appropriate Results Lab / Micro Data 05/27/24 14:50 05/27/24 14:50 Labs: Laboratory Results - last 24 hr 05/27/24 14:50: WBC 18.1 H, RBC 4.14 L, Hgb 10.2 L, Hct 32.0 L, MCV 77.3 L, MCH 24.6 L, MCHC 31.9 L, RDW Std Deviation 43.8, RDW Coeff of Yoli 15.6 H, Plt Count 566 H, MPV 10.0, Immature Gran % (Auto) 1.300 H, Neut % (Auto) 89.7 H, Lymph % (Auto) 4.3 L, [place] % (Auto) 3.9, Eos % (Auto) 0.5, Baso % (Auto) 0.3, Absolute Neuts (auto) 16.2 H, Absolute Lymphs (auto) 0.78 L, Nucleated RBC % 0, Sodium 123 L, Potassium 4.7, Chloride 88 L, Carbon Dioxide 17.6 L, Anion Gap 17 H, BUN 29 H, Creatinine 2.25 H, Estim Creat Clear Calc 26.50 L, Est GFR (MDRD) Non-Af 23 L, BUN/Creatinine Ratio 12.8, Glucose 236 H, Calcium 9.8, Total Bilirubin 0.93, AST 14, ALT 6, Alkaline Phosphatase 69, Troponin T High Sens 32 H, NT pro BNP II 1080 H, Total Protein 8.1, Albumin 3.4, Globulin 4.7 H, Albumin/Globulin Ratio 0.7 L, Lipase 15 05/27/24 16:05: Urine Color Melissa, Urine Clarity Cloudy, Urine pH 5.0, Ur Specific [place] 1.030, Urine Protein 100 H, Urine Glucose (UA) Normal, Urine Ketones 5 H, Urine Occult Blood 10 H, Urine Nitrite Negative, Urine Bilirubin 3 H, Urine Urobilinogen 8 H, Ur Leukocyte Esterase 500 H, Urine RBC 0-5 SEEN, Urine WBC 25-50 SEEN, Ur Squamous Epith Cells 0-5 SEEN, Amorphous Sediment 1+ PHOS, Urine Bacteria 1+, Hyaline Casts 0-5 SEEN, Fine Granular Casts 0-5 SEEN, Coarse Granular Casts 0-5 SEEN, Urine Mucus 0 SEEN 05/27/24 16:20: Lactic Acid 1.2 05/27/24 17:20: Troponin T Hi Sens 2 Hr 32 H Micro: Microbiology 05/27/24 14:50 Mucosa - Nose SARS-CoV-2, Influenza & RSV (PCR) - Final Imaging Radiology Impression Chest X-Ray 05/27/24 15:15 IMPRESSION: Right middle lobe pneumonia. Reading Location: [facility] Assessment & Plan Assessment/Plan (1) UTI (urinary tract infection): PLAN: Plan 1. Sepsis secondary to UTI and possible pneumonia with acute renal failure and hyponatremia ? She has had poor p.o. intake as well as 1 or 2 episodes of vomiting which exacerbates her renal failure as well as her hyponatremia ? Continue with IV fluids and encourage p.o. intake ? Urine sample is fairly indicative of a UTI and a urine culture is pending however there is also the possibility of a right middle lobe pneumonia however she had a lung biopsy in that region at the end of April so it is also possibly sequela from that as well ? Will continue with Rocephin and azithromycin pending culture results ? ABG did confirm that she is septic with a CO2 less than 20 and a creatinine greater than 2 however she is hemodynamically stable but she does not have severe sepsis 2. Essential HTN/HLD ? Continue her metoprolol as she has elevated heart rates at home but she is not sure why ? Will hold her lisinopril ? Will monitor make adjustments as necessary 3. DM2 ? Will hold her home medications ? Sign scale insulin ? Accu-Cheks ACHS ? Will monitor make adjustments as necessary 4. GERD ? Stable ? Continue with PPI 5. COPD ? Not in exacerbation ? Continue with her home inhalers 6. History of multiple cancers currently being evaluated for treatment of a right sided non-small cell lung carcinoma 7. Hypothyroidism ? Stabilized ? Continue Synthroid DVT: Heparin 76 minutes was spent on direct patient care, including documentation as well as chart review and collaboration with colleagues Sepsis Attestation Sepsis Attestation: Agree w/Sepsis Date exam was performed: 05/27/24 Time exam was performed: 18:00 Sepsis Organ Dysfunction Criteria Present: Creatinine > 2.0 mg/dL and Serum CO2 < 20 mmol/L (on BMP) Fluid Resuscitation Fluid Resuscitation ordered: Fluids not indicated Charges/Coding Visit Charges Inpatient E&M: 42581 Init Hosp L3
[2024-05-27] MEDS: Azithromycin 500 MG in Dextrose 5%-Water (250mL Bag) 250 ML 255 MG IV (19:19)
[2024-05-27 19:33] LABS: Allen Test Positive; Base Excess -4 mmol/L (-2 to +2); Bicarbonate 19.4 mmol/L (22-26); Blood Gas Specimen Type ART; Mode Not entered; O2 Delivery Device Not entered; PO2 75 mmHG (75-100); SITE L Radial; SO2 96 % (95-99); Total Carbon Dioxide 20 mmol/L; pCO2 25.7 mmHg (35-45); pH 7.49 (7.35-7.45)
[2024-05-27 20:50] LABS: Troponin T High Sens 4 HR 41 ng/L (<=14)
[2024-05-27 21:36] LABS: Ferritin 313 ng/mL (22-378)
[2024-05-27] MEDS: 0.9% Normal Saline (1000mL) 1,000 ML 125 ML IV (22:04)
[2024-05-27] MEDS: 0.9% Normal Saline (1000mL) 1,000 ML 999 ML IV (22:04)
[2024-05-27] MEDS: Heparin Injection (Vial) 5,000 UNIT/ML VIAL 5000 UNIT SC (22:06)
[2024-05-27] MEDS: Metoprolol Tartrate 25 MG Tablet PO (22:07)
[2024-05-27] MEDS: Insulin Lispro 100 UNIT/ML INSULN.PEN SC (22:15)
[2024-05-27 22:35] LABS: Bedside Glucose 176 mg/dL (74-106)
[2024-05-28] VITALS (7 sets, daily range): BP systolic 119–137; BP diastolic 53–70; PULSE 95–120; RESP 15–20; TEMP 36.4–36.8; O2SAT 91–100
[2024-05-28 01:49] LABS: Iron 11 ug/dL (50-170); Iron Binding Capacity,Unsat 225 ug/dL (228-428)
[2024-05-28 01:50] LABS: Iron Binding Capacity,Total 236 ug/dL (250-450)
[2024-05-28] MEDS: Levothyroxine 125 MCG Tablet PO (05:19)
[2024-05-28] MEDS: Heparin Injection (Vial) 5,000 UNIT/ML VIAL 5000 UNIT SC ×3 (05:19→21:17)
[2024-05-28] MEDS: Insulin Lispro 100 UNIT/ML INSULN.PEN SC ×3 (05:19→21:20)
[2024-05-28 05:45] LABS: Bedside Glucose 167 mg/dL (74-106)
[2024-05-28] MEDS: 0.9% Normal Saline (1000mL) 1,000 ML 125 ML IV (07:01)
[2024-05-28 08:02] LABS: Absolute Lymphocyte Count 0.62 X10^3/uL (0.83-4.51); Absolute Neutrophil Count 12.5 X10^3/uL (2.0-7.7); Basophil# 0.04 X10^3/uL; Basophil% 0.3 % (0-1); Eosinophil# 0.12 X10^3/uL; Eosinophils% 0.9 % (0-5); Hematocrit 27.5 % (37-47); Hemoglobin 8.8 g/dL (12.0-15.0); Lymphocyte # 0.62 X10^3/ul (0.83-4.51); Lymphocyte % 4.4 % (19-41); Mean Corpuscular Hgb 24.7 pg (27.0-32.0); Mean Corpuscular Volume 77.2 fL (81-99); Mean Platelet Vol. 9.6 fl (6.2-12.0); Monocyte% 4.3 % (0-10); NRBC Flagged by Analyzer 0 % (0-5); Neutrophil # 12.52 X10^3/uL (2.7-7.7); Neutrophil % 89.2 % (47-70); Platelet Count 416 K/mm3 (150-450); RBC Distribution Width CV 15.7 % (11.6-14.6); RBC Distribution Width SD 43.5 fl (35.1-43.9); Red Blood Count 3.56 M/mm3 (4.2-5.4)
[2024-05-28 08:27] LABS: Hemoglobin A1c 7.5 % (<=5.6)
[2024-05-28 08:29] LABS: Anion Gap 12 (5-15); BUN 23 mg/dL (4-19); Carbon Dioxide 17.8 mmol/L (21.0-32.0); Chloride 97 mmol/L (98-108); Creatinine, Serum 1.64 mg/dL (0.70-1.20); EST Glomerular Filtration Rate 34 (>60); Estimated Creatinine Clearance 39.58 ml/min (50-250); Glucose 159 mg/dL (70-99); Potassium 4.7 mmol/L (3.3-5.1); Sodium Level 127 mmol/L (133-145)
[2024-05-28] MEDS: Metoprolol Tartrate 25 MG Tablet PO ×2 (08:39→18:32)
[2024-05-28] MEDS: Pantoprazole Sodium 40 MG Tablet PO (08:39)
[2024-05-28] MEDS: Aspirin 81 MG TAB.CHEW PO (08:39)
--- NOTE | 2024-05-28 08:43 | PCM.PN.HOSP ---
Reason for Visit Reason for Visit: Malaise Subjective Subjective Patient states overall she is feeling much better. Objective Data Objective Data Vital Signs: Vital Signs Temp Pulse Resp BP Pulse Ox O2 Del Method 97.6 F L 105 H 16 133/70 H 91 Room Air 05/28/24 08:00 05/28/24 08:39 05/28/24 08:00 05/28/24 08:00 05/28/24 08:00 05/28/24 08:00 Oxygen Delivery Method Room Air Weight: 100.244 kg Body Mass Index (BMI) 36.8 Intake & Output: Intake and Output for Last 24 Hours 05/26/24 05/27/24 05/28/24 23:59 23:59 23:59 Intake Total 3060 / 3060 1200 / 1200 Output Total 225 / 225 Balance 3060 / 3060 975 / 975 Lab / Micro Data 05/28/24 07:48 05/28/24 07:48 Labs: Laboratory Results - last 24 hr 05/27/24 14:50: WBC 18.1 H, RBC 4.14 L, Hgb 10.2 L, Hct 32.0 L, MCV 77.3 L, MCH 24.6 L, MCHC 31.9 L, RDW Std Deviation 43.8, RDW Coeff of Yoli 15.6 H, Plt Count 566 H, MPV 10.0, Immature Gran % (Auto) 1.300 H, Neut % (Auto) 89.7 H, Lymph % (Auto) 4.3 L, Cascade % (Auto) 3.9, Eos % (Auto) 0.5, Baso % (Auto) 0.3, Absolute Neuts (auto) 16.2 H, Absolute Lymphs (auto) 0.78 L, Nucleated RBC % 0, Sodium 123 L, Potassium 4.7, Chloride 88 L, Carbon Dioxide 17.6 L, Anion Gap 17 H, BUN 29 H, Creatinine 2.25 H, Estim Creat Clear Calc 26.50 L, Est GFR (MDRD) Non-Af 23 L, BUN/Creatinine Ratio 12.8, Glucose 236 H, Calcium 9.8, Iron 11 L, TIBC 236 L, Iron Saturation 5.0 L, Unsaturated IBC 225 L, Ferritin 313, Total Bilirubin 0.93, AST 14, ALT 6, Alkaline Phosphatase 69, Troponin T High Sens 32 H, NT pro BNP II 1080 H, Total Protein 8.1, Albumin 3.4, Globulin 4.7 H, Albumin/Globulin Ratio 0.7 L, Lipase 15 05/27/24 16:05: Urine Color Melissa, Urine Clarity Cloudy, Urine pH 5.0, Ur Specific [place] 1.030, Urine Protein 100 H, Urine Glucose (UA) Normal, Urine Ketones 5 H, Urine Occult Blood 10 H, Urine Nitrite Negative, Urine Bilirubin 3 H, Urine Urobilinogen 8 H, Ur Leukocyte Esterase 500 H, Urine RBC 0-5 SEEN, Urine WBC 25-50 SEEN, Ur Squamous Epith Cells 0-5 SEEN, Amorphous Sediment 1+ PHOS, Urine Bacteria 1+, Hyaline Casts 0-5 SEEN, Fine Granular Casts 0-5 SEEN, Coarse Granular Casts 0-5 SEEN, Urine Mucus 0 SEEN 05/27/24 16:20: Lactic Acid 1.2 05/27/24 17:20: Troponin T Hi Sens 2 Hr 32 H 05/27/24 19:54: Troponin T Hi Sens 4Hr 41 H 05/27/24 22:10: POC Glucose 176 H 05/28/24 05:17: POC Glucose 167 H 05/28/24 07:48: WBC 14.0 H, RBC 3.56 L, Hgb 8.8 L, Hct 27.5 L, MCV 77.2 L, MCH 24.7 L, MCHC 32.0, RDW Std Deviation 43.5, RDW Coeff of Yoli 15.7 H, Plt Count 416, MPV 9.6, Immature Gran % (Auto) 0.900, Neut % (Auto) 89.2 H, Lymph % (Auto) 4.4 L, Cascade % (Auto) 4.3, Eos % (Auto) 0.9, Baso % (Auto) 0.3, Absolute Neuts (auto) 12.5 H, Absolute Lymphs (auto) 0.62 L, Nucleated RBC % 0, Sodium 127 L, Potassium 4.7, Chloride 97 L, Carbon Dioxide 17.8 L, Anion Gap 12, BUN 23 H, Creatinine 1.64 H, Estim Creat Clear Calc 39.58 L, Est GFR (MDRD) Non-Af 34 L, BUN/Creatinine Ratio 14.0, Glucose 159 H, Hemoglobin A1c 7.5 H, Calcium 9.0 Micro: Microbiology 05/27/24 14:50 Mucosa - Nose SARS-CoV-2, Influenza & RSV (PCR) - Final ABG Data ABG results: ABG 05/27/24 19:30 Specimen Type ART Sample Site L Radial pH 7.49 H Bicarbonate Actual 19.4 L Total CO2 20 Base Excess -4 L O2 Saturation 96 ABG pCO2 25.7 L ABG pO2 75 George Test Positive O2 Delivery Device Not entered Vent Mode Not entered Radiography Diagnostic Testing: Radiology Impression Chest X-Ray 05/27/24 15:15 IMPRESSION: Right middle lobe pneumonia. Reading Location: [facility] Rhythm Strip Rhythm Strip: Sinus Tach Rate: 130 Ectopy: None Physical Exam Const alert, oriented x3, no apparent distress and well nourished; Negative for average body habitus or healthy appearing Constitutional Narrative: Obese upper middle-aged, white female, sitting up in bed, appears much older than stated age, family at bedside, does not appear toxic, on room air HEENT head/scalp atraumatic, moist oral mucous membranes and oropharynx normal HEENT Narrative: Mallampati is 3-4, no thrush, dentition is poor Head and Scalp: normocephalic Resp normal respiratory effort, no retractions, no use of accessory muscles and clear to auscultation bilaterally Resp Narrative: Diffusely diminished but clear Auscultation: Negative for rales, rhonchi or wheezes Cardio regular rate, regular rhythm, S1 normal heart sound, S2 normal heart sound, no murmurs, no rub, no gallops and no clicks GI normal to inspection, nondistended, normoactive bowel sounds, soft to palpation, non-tender and non-distended Extremity no clubbing, cyanosis or edema Extremity Narrative: Pedal and radial pulses are 2+ Neuro oriented x3, moves all extremities and no focal motor deficits Speech: speech normal Psych affect normal Psych Narrative: Eye contact is good and patient interacts appropriately Assessment & Plan Assessment/Plan (1) Sepsis: (2) UTI (urinary tract infection): (3) PETRA (acute kidney injury): (4) Acute hyponatremia: PLAN: Plan Sepsis secondary to gram-negative urinary tract infection -Doubt pneumonia as patient is on room air and does not have a significant cough with clear lung muñiz bilaterally -Urine culture is positive for gram-negative kristen-LF -Continue ceftriaxone and await sensitivities -Blood pressures are stable and renal function is improving -Blood cultures are pending Leukocytosis -White count 14 today down from 18.1 yesterday -Should continue improve with antibiotics Generalized weakness/debility -PT/OT consultation -Case management/social work consultation PETRA on CKD -Baseline serum creatinine recently unknown however trending down -On presentation was 2.25 -Currently 1.64 -Will discontinue IV fluids -Repeat lab in a.m. Hyponatremia -Improved with IV fluids -May have a chronic component with her lung CA -Reevaluate in a.m. -Has trended up to 127 CAD/essential hypertension/hyperlipidemia -Continue metoprolol for intermittent tachycardia -Continue to hold lisinopril -Patient is not on a statin at baseline--> patient is on Repatha monthly -Continue home aspirin -Continue home fenofibrate GERD -Continue home PPI Hypothyroidism -Continue home levothyroxine GERD -continue home PPI DM-2 -Hemoglobin A1c 7.5 -Hold home oral agents -Subcu insulin as ordered -Continue Accu-Cheks COPD without exacerbation -Continue inhalers -Add incentive spirometry History of multiple cancers -Currently undergoing evaluation for right sided non-small cell lung CA -Continue outpatient follow-up with oncology DVT prophylaxis -Continue subcu heparin CODE STATUS -DNR CCA with no intubation Charges/Coding Visit Charges Inpatient E&M: 56744 Subs Hosp L2
[2024-05-28] MEDS: Sodium Ferric Gluconat 250 MG in 0.9% Normal Saline 250 ML 135 MG IV (09:35)
[2024-05-28] MEDS: Cholecalciferol (Vit D3) 125 MCG CAPSULE (5,000 UNITS) PO (09:37)
[2024-05-28] MEDS: Magnesium Chloride 64 MG Delay Rel.Tablet 128 MG PO (09:37)
--- NOTE | 2024-05-28 09:45 | CASEMGMT ---
MARLENE WHITAKER Assessment: Face to Face with pt for initial transition planning/care coordination assessment. MARLENE WHITAKER introduced self and role at [facility], pt voices understanding and consents to assessment. Pt is A&O x4 and answers all questions appropriately at this time. Pt sitting up in bed on RA in no distress. Care providers, pharmacy, and demographics verified/updated. Admitting Dx: pna with UTI and PETRA Strata Score: 2 PCP:Zechariah Specialists:Topher, onc; windy Sánchez onc; Ruslan pulm; Cardio at [place] [facility]; Komal, pod Preferred Pharmacy: [facility] [place] Insurance: [employer] Prescription Benefit: yes LNOK: Albertina Negron, dtr; Tyra Dillard, niece Living Arrangements: Pt lives with dtr in a single story home with a couple of steps to enter without a rail. Pt reports her dtr assists in and out of the shower for safety. Pt is able to bathe and dress self on own. Pt is able to prepare simple meals, dtr does laundry and pt uses [employer] for groceries. Pt denies concerns at home. Transportation: Pt can drive but has no car. Pt dtr transports her to medical appts. DME:[employer] with sufficient supply of strips and lancets, shower bench, w/c- Pt states she can't use a walker d/t her arthritis in her back. HHC/SNF: Denies hx of Pt states no concerns with going home at time of dc. Pt white board states x2 assist. Pt reports she has not worked with therapy yet. Pt is open to [facility] if she should need at home for therapy. Also discussed SN for disease education and monitoring. Pt states no further concerns/needs. CM to follow. Advised pt to ask CM if any further questions/concerns/needs arise, voices understanding. Pt Goal: Home Plan: Home with HHC vs SNF pending therapy evals and course of hospitalization Keyla ROSARIO CM Handoff given to [employer] CM
[2024-05-28 12:33] LABS: Bedside Glucose 159 mg/dL (74-106)
[2024-05-28] MEDS: Ferrous Sulfate 325 MG Tablet PO ×2 (13:22→18:32)
[2024-05-28 17:10] LABS: Bedside Glucose 211 mg/dL (74-106)
[2024-05-28] MEDS: Ceftriaxone 1 GM/50 ML BAG IV (21:16)
[2024-05-28] MEDS: Azithromycin 500 MG in 0.9% Normal Saline (250mL Bag) 250 ML 255 MG IV (21:16)
[2024-05-28 22:17] LABS: Bedside Glucose 250 mg/dL (74-106)
[2024-05-29 02:30] VITALS: BP 137/58; PULSE 100; RESP 18; TEMP 36.6; O2SAT 96
[2024-05-29] MEDS: Heparin Injection (Vial) 5,000 UNIT/ML VIAL 5000 UNIT SC (06:55)
[2024-05-29] MEDS: Levothyroxine 125 MCG Tablet PO (06:56)
[2024-05-29 07:14] LABS: Bedside Glucose 141 mg/dL (74-106)
[2024-05-29 07:47] LABS: Hematocrit 28.4 % (37-47); Hemoglobin 8.9 g/dL (12.0-15.0); Mean Corp Hgb Conc 31.3 g/dL (32-36); Mean Corpuscular Hgb 24.5 pg (27.0-32.0); Mean Corpuscular Volume 78.2 fL (81-99); Mean Platelet Vol. 9.4 fl (6.2-12.0); Platelet Count 443 K/mm3 (150-450); RBC Distribution Width CV 15.7 % (11.6-14.6); RBC Distribution Width SD 44.7 fl (35.1-43.9); Red Blood Count 3.63 M/mm3 (4.2-5.4); White Blood Count 11.5 K/mm3 (4.4-11.0)
[2024-05-29 08:09] LABS: Anion Gap 14 (5-15); BUN 16 mg/dL (4-19); BUN/Creat Ratio 12.5 RATIO (10-20); Calcium,Total 9.5 mg/dL (7.6-11.0); Carbon Dioxide 17.3 mmol/L (21.0-32.0); Chloride 95 mmol/L (98-108); Creatinine, Serum 1.28 mg/dL (0.70-1.20); EST Glomerular Filtration Rate 46 (>60); Estimated Creatinine Clearance 50.71 ml/min (50-250); Glucose 146 mg/dL (70-99); Potassium 4.4 mmol/L (3.3-5.1); Sodium Level 126 mmol/L (133-145)
[2024-05-29 09:47] VITALS: BP 128/58; PULSE 120; RESP 20; TEMP 36.6; O2SAT 94
[2024-05-29] MEDS: Pantoprazole Sodium 40 MG Tablet PO (09:51)
[2024-05-29 09:52] VITALS: PULSE 120
[2024-05-29] MEDS: Cholecalciferol (Vit D3) 125 MCG CAPSULE (5,000 UNITS) PO (09:52)
[2024-05-29] MEDS: Magnesium Chloride 64 MG Delay Rel.Tablet 128 MG PO (09:52)
[2024-05-29] MEDS: Aspirin 81 MG TAB.CHEW PO (09:52)
[2024-05-29] MEDS: Metoprolol Tartrate 25 MG Tablet PO (09:52)
[2024-05-29] MEDS: Insulin Lispro 100 UNIT/ML INSULN.PEN SC (11:35)
[2024-05-29 12:02] LABS: Bedside Glucose 241 mg/dL (74-106)
[2024-05-29] MEDS: TOLVAPTAN 15 MG TABLET PO (12:03)
[2024-05-29] MEDS: Ferrous Sulfate 325 MG Tablet PO (12:03)
--- NOTE | 2024-05-29 13:05 | CASEMGMT ---
MARLENE WHITAKER into pt room, pt dtr and another family member present. Pt is agreeable to HHC as well as dtr. Pt aware that RN SHERMAN or dc assistant store manager trainee will follow up on Friday with agencies who accepts her and she can chose from the list as pt has no preference of [facility]. Discussed SN, PT and OT services. Pt and family deny further needs at this time. Pt to dc this date.
--- NOTE | 2024-05-29 13:28 | DS.PCM_ITS ---
Providers Date of Admission: 05/27/24 Date of Discharge: 05/29/24 Primary Care Physician: Dr. Blade Apple MD Reason For Visit: PNEUMONIA WITH UTI AND PETRA Diagnosis Discharge Diagnosis (1) Sepsis: Status: Acute Code(s): A41.9 - Sepsis, unspecified organism (2) UTI (urinary tract infection): Status: Acute Code(s): N39.0 - Urinary tract infection, site not specified (3) PETRA (acute kidney injury): Status: Acute Code(s): N17.9 - Acute kidney failure, unspecified (4) Acute hyponatremia: Status: Acute Code(s): E87.1 - Hypo-osmolality and hyponatremia Plan Sepsis secondary to gram-negative urinary tract infection -Doubt pneumonia as patient is on room air and does not have a significant cough with clear lung muñiz bilaterally -Urine culture is positive for gram-negative kristen-LF -Continue ceftriaxone and await sensitivities -Blood pressures are stable and renal function is improving -Blood cultures are pending Leukocytosis -White count 14 today down from 18.1 yesterday -Should continue improve with antibiotics Generalized weakness/debility -PT/OT consultation -Case management/social work consultation PETRA on CKD -Baseline serum creatinine recently unknown however trending down -On presentation was 2.25 -Currently 1.64 -Will discontinue IV fluids -Repeat lab in a.m. Hyponatremia -Improved with IV fluids -May have a chronic component with her lung CA -Reevaluate in a.m. -Has trended up to 127 CAD/essential hypertension/hyperlipidemia -Continue metoprolol for intermittent tachycardia -Continue to hold lisinopril -Patient is not on a statin at baseline--> patient is on Repatha monthly -Continue home aspirin -Continue home fenofibrate GERD -Continue home PPI Hypothyroidism -Continue home levothyroxine GERD -continue home PPI DM-2 -Hemoglobin A1c 7.5 -Hold home oral agents -Subcu insulin as ordered -Continue Accu-Cheks COPD without exacerbation -Continue inhalers -Add incentive spirometry History of multiple cancers -Currently undergoing evaluation for right sided non-small cell lung CA -Continue outpatient follow-up with oncology DVT prophylaxis -Continue subcu heparin CODE STATUS -DNR CCA with no intubation Medications at Discharge Home Medications albuterol sulfate 2.5 mg/3 mL (0.083 %) solution for nebulization 2.5 mg inhalation Q6H PRN PRN Sob &/Or Wheezing 05/05/16 albuterol sulfate 90 mcg/actuation aerosol inhaler 2 puff inhalation Q4H PRN PRN Sob &/Or Wheezing 05/05/16 aspirin 81 mg chewable tablet 81 mg PO DAILY@0800 heart health 05/05/16 cholecalciferol (vitamin D3) 125 mcg (5,000 unit) capsule 5,000 unit PO DAILY vitamin 05/05/16 esomeprazole magnesium 40 mg capsule,delayed release 40 mg PO DAILY reflux 05/05/16 fexofenadine 60 mg-pseudoephedrine ER 120 mg tablet,ext.release,12 hr 1 tab PO BID PRN ALLERGY SYMPTOMS 05/05/16 lisinopril 5 mg tablet 0.5 tab PO DAILY blood pressure 05/05/16 metformin 500 mg tablet 1,000 mg PO BIDAC diabetes 05/05/16 nystatin 100,000 unit/gram topical powder 1 applic topical TID rash 05/05/16 baclofen 10 mg tablet 10 mg PO TID PRN PRN muscle spasm 05/27/24 dulaglutide 3 mg/0.5 mL subcutaneous pen injector (Trulicity) 3 mg subcut QWEEK diabetes 05/27/24 evolocumab 140 mg/mL subcutaneous pen injector (Repatha SureGregoryick) 140 mg subcut QMONTH cholesterol 05/27/24 fenofibrate nanocrystallized 145 mg tablet 145 mg PO DAILY cholesterol 05/27/24 glimepiride 1 mg tablet 1 mg PO DAILY diabetes 05/27/24 levothyroxine 125 mcg tablet 125 mcg PO DAILY thyroid 05/27/24 magnesium oxide 400 mg PO DAILY supplement 05/27/24 metoprolol tartrate 25 mg tablet 25 mg PO BID blood pressure 05/27/24 cephalexin 500 mg capsule 500 mg PO BID #8 caps 05/29/24 sodium chloride 1,000 mg soluble tablet 1,000 mg PO TID #90 tabs 05/29/24 Hospital Course Operations None Procedures - (Chest x-ray) Summary of Care Provided Minutes Spent on Discharge: 38 Hospital Course: Patient is a 68-year-old white female who had not been feeling well since Friday and presented to emergency department [facility] on 05/27/2024. She started having chills but no fevers. She had 1 episode of nausea and vomiting on Friday and then again on Friday. Her appetite had been poor and p.o. intake had decreased. She was at her oncologist office on the day of presentation to discuss treatment for non-small cell lung CA on the right side of her chest but while she was in the office she had a near syncopal episode. She was referred to the emergency department. Vital signs on presentation were temperature 97.8, heart rate 140, respiratory rate 32, blood pressure was 137/97 and pulse ox was 97% on room air. CBC showed a leukocytosis with a white count of 18.1 and by the time of discharge her white count was 11.5. Some of this was related to hemoconcentration however she was found to have a urinary tract infection as well. Chemistry panel showed a sodium of 123, chloride of 88, bicarb of 17.6 and an anion gap of 17. Her BUN was 29 and serum creatinine was 2.25. By the time of discharge her sodium had improved to 126. We do not have recent data on her sodium levels however I suspect with her lungs states been lower. 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 Renal function at discharge was back to her baseline at 1.28. She was tolerating p.o. intake without difficulty. Urine culture showed E. coli. It was pansensitive so she was sent on Keflex to complete a course of antibiotics. A total of 5 days of antibiotics was given. She was evaluated by physical and Occupational Therapy and they thought she would benefit from ongoing rehab. The case was discussed with social work and case management and they intend to set her up with home health on Friday. No other medication changes were made. Vas that she follow-up with her primary care physician within the next week and have ongoing follow-up with her oncologist as previously instructed. Patient was discharged home in stable condition with home health care on 05/29/2024. Discharge diagnoses: Sepsis secondary to E. coli UTI Leukocytosis Generalized weakness Debility PETRA CKD stage IIIa Hyponatremia CAD Essential hypertension Hyperlipidemia GERD Hypothyroidism GERD DM-2 COPD without exacerbation History of multiple cancers Current non-small cell lung CA Physical Exam Const alert, oriented x3, no apparent distress and well nourished; Negative for average body habitus or healthy appearing Constitutional Narrative: Obese upper middle-aged, white female, finishing up in the bathroom and walking back to her bed, appears much older than stated age, family at bedside, does not appear toxic, on room air General Appearance: cooperative, comfortable and well developed Nutritional Appearance: obese HEENT normocephalic, head/scalp atraumatic, hearing grossly normal bilaterally and moist oral mucous membranes HEENT Narrative: Dentition is poor, Mallampati is 3 Resp normal respiratory effort, no retractions, no use of accessory muscles and clear to auscultation bilaterally Resp Narrative: Diffusely diminished but clear Auscultation: Negative for rales, rhonchi or wheezes Cardio regular rate, regular rhythm, S1 normal heart sound, S2 normal heart sound, no murmurs, no rub, no gallops and no clicks GI normal to inspection, nondistended, normoactive bowel sounds, soft to palpation, non-tender and non-distended Extremity no clubbing, cyanosis or edema Extremity Narrative: Pedal and radial pulses are 2+ Skin skin turgor normal and no jaundice Neuro oriented x3, moves all extremities and no focal motor deficits Neuro Narrative: Ambulated with wheeled walker back to bed Speech: speech normal Psych affect normal Psych Narrative: Eye contact is good and patient interacts appropriately Weight / BMI Weight Weight: 100.244 kg Body Mass Index (BMI) 36.8 ABG / Lab / Microbiology Data 05/29/24 07:34 05/29/24 07:34 Laboratory: Laboratory Results - last 24 hr 05/28/24 21:19: POC Glucose 250 H 05/29/24 06:55: POC Glucose 141 H 05/29/24 07:34: WBC 11.5 H, RBC 3.63 L, Hgb 8.9 L, Hct 28.4 L, MCV 78.2 L, MCH 24.5 L, MCHC 31.3 L, RDW Std Deviation 44.7 H, RDW Coeff of Yoli 15.7 H, Plt Count 443, MPV 9.4, Sodium 126 L, Potassium 4.4, Chloride 95 L, Carbon Dioxide 17.3 L, Anion Gap 14, BUN 16, Creatinine 1.28 H, Estim Creat Clear Calc 50.71, E st GFR (MDRD) Non-Af 46 L, BUN/Creatinine Ratio 12.5, Glucose 146 H, Calcium 9.5 05/29/24 11:34: POC Glucose 241 H Microbiology: Microbiology 05/27/24 Unknown Urine, Catheterized Urine Culture - Final Escherichia coli 05/27/24 14:50 Mucosa - Nose SARS-CoV-2, Influenza & RSV (PCR) - Final D/C Instructions Discharge Diet: Low fat / Low cholesterol and 1800 Calorie Control Diet Discharge Activity: Return to Normal Activity DC O2, CPAP, BIPAP Needs Home O2 Discharge instructions: No Meaningful Use Info Meaningful Use Meaningful Use Diagnoses (Choose all that apply): None applicable Ischemic Stroke Statin Dosing Therapy Reference: STATIN DOSE THERAPY REFERENCE: * Patients > 75 years receive moderate or high dose statin therapy. * Patients 75 years or YOUNGER should receive HIGH intensity statin dose unless contraindicated. You will be required to document reason for non-treatment if statin daily dose does not meet guidelines. HIGH DOSE STATIN THERAPY DAILY Atorvastatin > than or = to 40 mg Rosuvastatin > than or = to 20 mg Amlodipine + Atorvastatin > than or = to 2.5/40 mg Ezetimibe + Simvastatin 10/80 mg Simvastatin 80mg Discharge Plan Admission Admit Date/Time: 05/27/24 19:00 Primary Reason for Your Visit: Malaise Attending Provider: Nicole Sánchez Primary Care Provider: Blade Apple Consulting Providers: Raciel Ashby Instructions Additional Instructions / Restrictions: 1. Please restrict your fluid intake to 2 L or less daily 2. Please call your primary care physician and asked that a basic panel follow- up profile be done in the next 5 to 7 days to recheck your sodium level Discharge Orders/Prescriptions Prescriptions: New cephalexin 500 mg capsule 500 mg PO BID Qty: 8 0RF sodium chloride 1,000 mg tablet,soluble 1,000 mg PO TID Qty: 90 0RF Continued metformin 500 MG tablet 1,000 mg PO BIDAC albuterol sulfate 2.5 MG/3 ML solution for nebulization 2.5 mg inhalation Q6H PRN PRN (Reason: Sob &/Or Wheezing) esomeprazole magnesium 40 MG capsule 40 mg PO DAILY aspirin 81 MG tablet,chewable 81 mg PO DAILY@0800 lisinopril 5 MG tablet 0.5 tab PO DAILY nystatin 1 APPLIC bottle 1 applic topical TID albuterol sulfate 1 PUFF inhaler 2 puff inhalation Q4H PRN PRN (Reason: Sob &/Or Wheezing) fexofenadine-pseudoephedrine 1 EACH tablet extended release 12 hr 1 tab PO BID PRN (Reason: ALLERGY SYMPTOMS) Patient Comments: 60-120 MG cholecalciferol (vitamin D3) 5,000 UNIT capsule 5,000 unit PO DAILY levothyroxine 125 mcg tablet 125 mcg PO DAILY metoprolol tartrate 25 mg tablet 25 mg PO BID Repatha SureClick 140 mg/mL pen injector 140 mg subcut QMONTH glimepiride 1 mg tablet 1 mg PO DAILY baclofen 10 mg tablet 10 mg PO TID PRN PRN (Reason: muscle spasm) fenofibrate nanocrystallized 145 mg tablet 145 mg PO DAILY magnesium oxide 400 mg magnesium capsule 400 mg PO DAILY Trulicity 3 mg/0.5 mL pen injector 3 mg subcut QWEEK Referrals / Follow Up: Blade Apple MD [Primary Care Provider] - In 1 Week Disposition Disposition (needs filled in before D/C Order can be placed): Home Health Service Charges/Coding Visit Charges Inpatient E&M: 03694 Disch Hosp >30min
[2024-05-29 15:12] VITALS: BP 130/54; PULSE 109; RESP 18; TEMP 36.6; O2SAT 97
--- NOTE | 2024-05-31 09:49 | CASEMGMT ---
Addendum entered by Mei Garcia 05/31/24 10:21: [facility] declined. [facility] CM updated. Mei Garcia DC Planning Asst. Original Note: Discharge Planning HH referral sent to [facility] and [facility]. Mei Garcia DC Planning Asst.
== END 2024-05-29 17:06 | disposition home health service (06) | DRG 194 ==
LOC: ED 19:29 → PCU 20:02
PROVIDERS: Admitting Provider Family Medicine; Emergency Provider Emergency Medicine; PCP Family Medicine; Referring Provider Family Medicine; Visit Provider Internal Medicine
DX: J18.1 Lobar pneumonia, unspecified organism (principal); C78.01 Secondary malignant neoplasm of right lung; E87.1 Hypo-osmolality and hyponatremia; N17.9 Acute kidney failure, unspecified; J44.0 Chronic obstructive pulmonary disease with (acute) lower respiratory infection; N39.0 Urinary tract infection, site not specified; B96.89 Other specified bacterial agents as the cause of diseases classified elsewhere; E11.22 Type 2 diabetes mellitus with diabetic chronic kidney disease; D50.9 Iron deficiency anemia, unspecified; E03.9 Hypothyroidism, unspecified; I12.9 Hypertensive chronic kidney disease with stage 1 through stage 4 chronic kidney disease, or unspecified chronic kidney disease; D72.829 Elevated white blood cell count, unspecified; E78.5 Hyperlipidemia, unspecified; N18.2 Chronic kidney disease, stage 2 (mild); K21.9 Gastro-esophageal reflux disease without esophagitis; E87.6 Hypokalemia; E86.0 Dehydration; Z80.1 Family history of malignant neoplasm of trachea, bronchus and lung; Z79.890 Hormone replacement therapy; Z82.5 Family history of asthma and other chronic lower respiratory diseases; Z90.710 Acquired absence of both cervix and uterus; R55 Syncope and collapse; Z92.3 Personal history of irradiation; Z88.5 Allergy status to narcotic agent; Z88.8 Allergy status to other drugs, medicaments and biological substances; Z79.51 Long term (current) use of inhaled steroids; Z79.82 Long term (current) use of aspirin; Z79.899 Other long term (current) drug therapy; Z79.84 Long term (current) use of oral hypoglycemic drugs
CPT/HCPCS: 36415; 36600; 71046; 80048; 80053; 81001; 82728; 82803; 82962; 83036; 83540; 83550; 83605; 83690; 83880; 84484; 85025; 87040; 87077; 87086; 87088; 87631; 93005; 94640; 97162; 97166; 99285; 99406; P9612; A4216; J2916